=== PATIENT | female | born 1965 | race African-American/Black ===

== ENCOUNTER 2022-04-10 09:57 | Emergency (ER) | payer BC ==
[~2022-04-10] VITALS: Ht 167.6 cm; Wt 85.0 kg
[2022-04-10 10:15] VITALS: BP 155/80
[2022-04-10 10:22] LABS: COVID AG,FIA SOURCE NASOPHARYNGEAL
== END 2022-04-10 14:59 | disposition home or self-care (01) ==
LOC: EMS 10:00
DX: Z53.21 Procedure and treatment not carried out due to patient leaving prior to being seen by health care provider (principal); Z20.822 Contact with and (suspected) exposure to COVID-19
CPT/HCPCS: 99283

== ENCOUNTER 2022-04-15 11:00 | Emergency (ER) | payer BC ==
[~2022-04-15] VITALS: Ht 167.6 cm; Wt 82.0 kg
[2022-04-15 11:09] VITALS: BP 128/80
[2022-04-15 11:34] LABS: COVID AG,FIA SOURCE NASAL SWAB
== END 2022-04-15 12:30 | disposition home or self-care (01) ==
LOC: EMS 11:03
DX: Z01.84 Encounter for antibody response examination (principal)
CPT/HCPCS: 99283

== ENCOUNTER 2022-04-19 10:06 | Emergency (ER) | payer BC ==
[~2022-04-19] VITALS: Ht 167.6 cm; Wt 84.1 kg
[2022-04-19 10:27] VITALS: BP 154/84
[2022-04-19 10:57] LABS: COVID AG,FIA SOURCE NASAL SWAB
== END 2022-04-19 12:55 | disposition home or self-care (01) ==
LOC: EMS 10:06
DX: Z20.822 Contact with and (suspected) exposure to COVID-19 (principal)
CPT/HCPCS: 99283